=== PATIENT | male | born 1960 | race Caucasian/White ===

== ENCOUNTER 2017-03-26 20:44 | Emergency (ER) | payer BC ==
[2017-03-26 20:50] VITALS: BP 124/83; PULSE 89; TEMP 97.8; BMI 33.4
--- NOTE | 2017-03-26 21:22 | PDOC ---
Rapid Medical Evaluation Chief Complaint: Back Pain Time Seen by Provider: 03/26/17 20:46 Medical Evaluation: Allergies Allergy/AdvReac Type Severity Reaction Status Date / Time No Known Allergies Allergy Verified 11/30/15 21:48 03/26/17 20:46 I have performed a brief in-person evaluation of this patient. The patient presents with a chief complaint of:Lower back pain radiating to b/l LE x 2 days. H/o lower back pain w/ "R side sciatica", HLD, DM Pertinent physical exam findings: Appears minimally uncomfortable but stable w/ unremarkable exam otherwise I have ordered the following:nothing The patient will proceed to the ED for further evaluation. 03/26/17 21:22
[2017-03-26] MEDS ORDERED: KETOROLAC TROMETHAMINE 60 MG/2 ML VIAL IM ONE (21:30)
[2017-03-26] MEDS ORDERED: KETOROLAC TROMETHAMINE 60 MG/2 ML VIAL ONE (21:32)
--- NOTE | 2017-03-26 21:35 | PDOC ---
History of Present Illness - General Chief Complaint: Back Pain Stated Complaint: BACK PAIN Time Seen by Provider: 03/26/17 20:46 History Source: Patient Exam Limitations: No Limitations - History of Present Illness Initial Comments: 03/26/17 21:30 56 yr male with sciatica radiates to right buttock and leg for 3 days started after lifting heavy boxes. pt denies abd pain denies nvd no urinary or bowel dysfunction. Pain Location: reports: none Method of Injury: Yes: other (lifting heavy boxes) Associated Symptoms (Fall): denies symptoms Past History - Past Medical History Allergies/Adverse Reactions: Allergies Allergy/AdvReac Type Severity Reaction Status Date / Time No Known Allergies Allergy Verified 03/26/17 20:49 Home Medications: Ambulatory Orders Cyclobenzaprine HCl [Flexeril] 5 mg PO TID #9 tablet 11/30/15 Ibuprofen [Motrin -] 800 mg PO TID #30 tablet 11/30/15 Metformin HCl 500 mg PO BID 11/30/15 Oxycodone HCl/Acetaminophen [Percocet 5/325 -] 1 tab PO Q4H #15 tablet 11/30/15 Pregabalin [Lyrica] 0 mg PO BID 11/30/15 Simvastatin [Zocor -] 30 mg PO DAILY 11/30/15 Cyclobenzaprine HCl [Flexeril 10 mg] 5 mg PO TID PRN #15 tablet 03/26/17 Naproxen [Naprosyn -] 500 mg PO BID PRN #14 tablet 03/26/17 Anemia: No Asthma: No Cancer: No Cardiac Disorders: No CVA: No COPD: Yes CHF: No Dementia: No Diabetes: Yes GI Disorders: No Disorders: No HTN: No Hypercholesterolemia: Yes Liver Disease: No Suicide Attempt (Hx): No Seizures: No Thyroid Disease: No - Surgical History Abdominal Surgery: Yes Appendectomy: Yes - Immunization History Immunization Up to Date: Yes - Psycho/Social/Smoking Cessation Hx Anxiety: No Suicidal Ideation: No Smoking Status: Yes Smoking History: Current every day smoker Have you smoked in the past 12 months: Yes Number of Cigarettes Smoked Daily: 20 Information on smoking cessation initiated: No Hx Alcohol Use: No Drug/Substance Use Hx: No Substance Use Type: None Hx Substance Use Treatment: No Trauma Specific PMHX - Complaint Specific PMHX Arthritis: No Back Injury: Yes (years ago ) Neck Injury: No Hx Sacro Iliac Joint Dysfunction: No Review of Systems - Review of Systems Able to Perform ROS?: Yes Is the patient limited Syriac proficient: No Constitutional: No: Symptoms Reported HEENTM: No: Symptoms Reported Respiratory: No: Symptoms reported Cardiac (ROS): No: Symptoms Reported ABD/GI: No: Symptoms Reported : No: Symptoms Reported Musculoskeletal: Yes: See HPI, Back Pain *Physical Exam - Vital Signs Last Vital Signs Temp Pulse Resp BP Pulse Ox 97.8 F 89 18 124/83 99 03/26/17 20:46 03/26/17 20:46 03/26/17 20:46 03/26/17 20:46 03/26/17 20:46 - Physical Exam General Appearance: Yes: Nourished, Appropriately Dressed HEENT: positive: EOMI, MG Neck: negative: Tender Respiratory/Chest: positive: Lungs Clear, Normal Breath Sounds. negative: Chest Tender Cardiovascular: positive: Regular Rhythm, Regular Rate Gastrointestinal/Abdominal: positive: Normal Bowel Sounds, Soft. negative: Tender Musculoskeletal: positive: Normal Inspection, Other (ttp soft tissue para spinal lumbar to buttock point tenderness to buttock). negative: CVA Tenderness , CVA Tenderness (R), CVA Tenderness (L), Decreased Range of Motion, Muscle Spasm, Vertebral Tenderness Extremity: positive: Normal Capillary Refill, Normal Inspection, Normal Range of Motion, Other (positive slr right leg at 50 degrees). negative: Tender Integumentary: positive: Normal Color, Dry, Warm Neurologic: positive: Fully Oriented, Alert, Normal Mood/Affect, Normal Response , Motor Strength 5/5 Medical Decision Making - Medical Decision Making 03/26/17 21:34 sciatica right side buttock to lateral thigh no numbness or tingling neg saddle anesthesia neg urine or bowel dysfunction will give toradol and dc home with flexeril follow up with PMD and orthopedist pt agrees with plan of care all questions asked and answered *DC/Admit/Observation/Transfer Diagnosis at time of Disposition: Back pain Qualifiers: Back pain location: low back pain Chronicity: acute Back pain laterality: right Sciatica presence: with sciatica Sciatica laterality: sciatica of right side Qualified Code(s): M54.41 - Lumbago with sciatica, right side - Discharge Dispostion Disposition: HOME Condition at time of disposition: Good - Prescriptions Prescriptions: Cyclobenzaprine HCl [Flexeril 10 mg] 5 mg PO TID PRN #15 tablet PRN Reason: Muscle Spasms Naproxen [Naprosyn -] 500 mg PO BID PRN #14 tablet PRN Reason: Back Pain - Referrals Referrals: Trent Garcia MD [Primary Care Provider] - Alec Albright MD [Staff Physician] - - Patient Instructions Additional Instructions: WARM COMPRESSES TO LOWER BACK EVERY 3-4HRS FOR 20 MINUTES TAKE FLEXERIL FOR MUSCLE SPASM TAKE NAPROSYN FOR PAIN FOLLOW WITH YOUR DOCTOR FOR FOLLOW UP OR WITH THE ORTHOPEDIST RETURN TO ER FOR ANY WORSENING SYMPTOMS
== END 2017-03-26 21:46 | disposition home or self-care (01) ==
LOC: JERFT 20:44
PROC: 3E0233Z Introduction of Anti-inflammatory into Muscle, Percutaneous Approach (ICD-10-PCS; principal; 2017-03-26)
DX: M54.41 Lumbago with sciatica, right side (principal); F17.210 Nicotine dependence, cigarettes, uncomplicated; J44.9 Chronic obstructive pulmonary disease, unspecified; E11.9 Type 2 diabetes mellitus without complications; E78.00 Pure hypercholesterolemia, unspecified
CPT/HCPCS: 99281-25

== ENCOUNTER 2021-03-01 11:58 | Inpatient (IN) | payer OTHER ==
[2021-03-01] MEDS ORDERED: BISMUTH SUBSALICYLATE 262 MG/15 ML BTL PO PRN (12:56)
[2021-03-01] MEDS ORDERED: ONDANSETRON *ODT* 4 MG TABLET SL PRN (12:56)
[2021-03-01] MEDS ORDERED: NICOTINE POLACRILEX 2 MG GUM BUC PRN (12:56)
[2021-03-01] MEDS ORDERED: MENTHOL/PHENOL 1 EACH UD MM PRN (12:56)
[2021-03-01] MEDS ORDERED: MAGNESIUM CITRATE 300 ML BOTTLE PO PRN (12:56)
[2021-03-01] MEDS ORDERED: MAG HYDROX/AL HYDROX/SIMETH 30 ML UNIT-DOSE CUP PO PRN (12:56)
[2021-03-01] MEDS ORDERED: METHADONE HCL 10 MG TABLET (FOR DETOX USE ONLY) PO ONE (12:56)
[2021-03-01] MEDS ORDERED: IBUPROFEN 400 MG TABLET (FP) PO PRN (12:56)
[2021-03-01] MEDS ORDERED: ACETAMINOPHEN 325 MG TABLET (FP) PO PRN (12:56)
[2021-03-01] MEDS ORDERED: MAGNESIUM HYDROX 2400MG/30ML ORAL SUSPENSION 30 ML CUP PO PRN (12:56)
[2021-03-01] MEDS ORDERED: cloNIDine HCL 0.1 MG TABLET PO PRN (12:56)
[2021-03-01 12:57] VITALS: BMI 26.7
[2021-03-01] MEDS: PRENATAL VITAMINS W/ FOLIC ACID TABLET (FP) PO SCH (16:21)
[2021-03-01] MEDS: NICOTINE 21 MG/24 HOURS TOPICAL PATCH TD SCH (16:21)
[2021-03-01] MEDS: hydrOXYzine PAMOATE 25 MG CAPSULE (FP) PO SCH ×3 (16:26→22:08)
[2021-03-01 16:58] LABS: HEMOGLOBIN 12.4 GM/dL (11.7-16.9); MCH 30.2 pg (25.7-33.7); MCHC 33.4 g/dl (32.0-35.9); MEAN CELL VOLUME 90.4 fl (80-96); MEAN PLT VOLUME 7.8 fl (7.5-11.1); PLATELET COUNT 287 K/MM3 (134-434); WHITE BLOOD COUNT 9.3 K/mm3 (4.0-10.0)
[2021-03-01 17:04] LABS: ALBUMIN 3.8 g/dl (3.4-5.0); CALCIUM 8.8 mg/dL (8.5-10.1)
[2021-03-01 17:05] LABS: BLOOD UREA NITROGEN 8.8 mg/dL (7-18)
[2021-03-01 17:07] LABS: CREATININE 0.7 mg/dL (0.55-1.3)
[2021-03-01 17:09] LABS: BILIRUBIN,TOTAL 0.5 mg/dL (0.2-1); TOT PROT 7.2 g/dl (6.4-8.2)
[2021-03-01 17:55] LABS: HIV INTERPRETATION NEGATIVE (NEGATIVE)
[2021-03-01] MEDS: metFORMIN HCL 500 MG TABLET (FP) PO SCH (18:08)
[2021-03-01 19:07] LABS: SYPHILIS W/ RPR CONF REACTIVE (NONREACTIVE)
[2021-03-01] MEDS: THIAMINE HCL 100 MG TABLET (FP) PO SCH (22:08)
[2021-03-01] MEDS: MELATONIN 5 MG TABLETS PO SCH (22:08)
[2021-03-01] MEDS: ACETAMINOPHEN 325 MG TABLET (FP) PO PRN (22:09)
[2021-03-02] MEDS: hydrOXYzine PAMOATE 25 MG CAPSULE (FP) PO SCH ×5 (05:29→21:22)
[2021-03-02] MEDS: metFORMIN HCL 500 MG TABLET (FP) PO SCH ×2 (06:30→17:34)
[2021-03-02] MEDS: GEMFIBROZIL 600 MG TABLET (FP) PO SCH (06:30)
[2021-03-02] MEDS ORDERED: METHADONE HCL 10 MG TABLET (FOR DETOX USE ONLY) ONE (09:54)
[2021-03-02] MEDS ORDERED: METHADONE HCL 5 MG TABLET (FOR DETOX USE ONLY) ONE (09:54)
[2021-03-02] MEDS ORDERED: METHADONE (DETOX) 20 MG, METHADONE (DETOX) 5 MG PO ONE (10:00)
[2021-03-02] MEDS ORDERED: GEMFIBROZIL PO SCH (10:00)
[2021-03-02] MEDS: NICOTINE 21 MG/24 HOURS TOPICAL PATCH TD SCH (10:08)
[2021-03-02] MEDS: PRENATAL VITAMINS W/ FOLIC ACID TABLET (FP) PO SCH (10:09)
[2021-03-02] MEDS: METHOCARBAMOL 500 MG TABLET PO PRN ×2 (10:10→21:22)
[2021-03-02] MEDS: MELATONIN 5 MG TABLETS PO SCH (21:22)
[2021-03-02] MEDS: THIAMINE HCL 100 MG TABLET (FP) PO SCH (21:22)
[2021-03-03] MEDS: hydrOXYzine PAMOATE 25 MG CAPSULE (FP) PO SCH ×2 (05:38→11:42)
[2021-03-03] MEDS: metFORMIN HCL 500 MG TABLET (FP) PO SCH ×2 (06:19→16:39)
[2021-03-03] MEDS: GEMFIBROZIL 600 MG TABLET (FP) PO SCH (06:47)
[2021-03-03] MEDS ORDERED: METHADONE HCL 10 MG TABLET (FOR DETOX USE ONLY) PO ONE (10:00)
[2021-03-03] MEDS ORDERED: hydrOXYzine PAMOATE 25 MG CAPSULE (FP) PO PRN (10:26)
[2021-03-03] MEDS: PRENATAL VITAMINS W/ FOLIC ACID TABLET (FP) PO SCH (10:39)
[2021-03-03] MEDS: NICOTINE 21 MG/24 HOURS TOPICAL PATCH TD SCH (10:39)
[2021-03-03] MEDS: METHOCARBAMOL 500 MG TABLET PO PRN (10:41)
[2021-03-03] MEDS: diazePAM 5 MG TABLET PO PRN ×2 (10:44→22:00)
[2021-03-03] MEDS: TRIMETHOBENZAMIDE HCL 300 MG CAPSULE PO PRN (16:39)
[2021-03-03] MEDS ORDERED: TRIMETHOBENZAMIDE HCL 200MG/2ML INJ IM ONE (18:47)
[2021-03-03] MEDS: MELATONIN 5 MG TABLETS PO SCH (22:01)
[2021-03-03] MEDS: THIAMINE HCL 100 MG TABLET (FP) PO SCH (22:01)
[2021-03-04] MEDS: metFORMIN HCL 500 MG TABLET (FP) PO SCH ×2 (06:13→18:04)
[2021-03-04] MEDS: GEMFIBROZIL 600 MG TABLET (FP) PO SCH (07:06)
[2021-03-04] MEDS ORDERED: TRIMETHOBENZAMIDE HCL 200MG/2ML INJ IM PRN (09:02)
[2021-03-04] MEDS ORDERED: METHADONE HCL 5 MG TABLET (FOR DETOX USE ONLY) ONE (09:48)
[2021-03-04] MEDS ORDERED: METHADONE HCL 10 MG TABLET (FOR DETOX USE ONLY) ONE (09:48)
[2021-03-04] MEDS ORDERED: METHADONE (DETOX) 10 MG, METHADONE (DETOX) 5 MG PO ONE (10:00)
[2021-03-04] MEDS: NICOTINE 21 MG/24 HOURS TOPICAL PATCH TD SCH (10:05)
[2021-03-04] MEDS: diazePAM 5 MG TABLET PO PRN ×3 (10:05→22:06)
[2021-03-04] MEDS: PRENATAL VITAMINS W/ FOLIC ACID TABLET (FP) PO SCH (10:05)
[2021-03-04] MEDS: METHOCARBAMOL 500 MG TABLET PO PRN (10:06)
[2021-03-04] MEDS: SODIUM CHLORIDE NASAL SPRAY 44 ML BOTTLE NS PRN ×2 (10:06→22:06)
[2021-03-04] MEDS: THIAMINE HCL 100 MG TABLET (FP) PO SCH (22:05)
[2021-03-04] MEDS: MELATONIN 5 MG TABLETS PO SCH (22:05)
[2021-03-05] MEDS: diazePAM 5 MG TABLET PO PRN ×4 (05:51→22:10)
[2021-03-05] MEDS: metFORMIN HCL 500 MG TABLET (FP) PO SCH ×2 (06:28→17:29)
[2021-03-05] MEDS: GEMFIBROZIL 600 MG TABLET (FP) PO SCH (06:29)
[2021-03-05] MEDS ORDERED: METHADONE HCL 10 MG TABLET (FOR DETOX USE ONLY) PO ONE (10:00)
[2021-03-05] MEDS: NICOTINE 21 MG/24 HOURS TOPICAL PATCH TD SCH (10:20)
[2021-03-05] MEDS: PRENATAL VITAMINS W/ FOLIC ACID TABLET (FP) PO SCH (10:20)
[2021-03-05] MEDS: TRIMETHOBENZAMIDE HCL 300 MG CAPSULE PO PRN (17:31)
[2021-03-05] MEDS: ACETAMINOPHEN 325 MG TABLET (FP) PO PRN (22:11)
[2021-03-05] MEDS: THIAMINE HCL 100 MG TABLET (FP) PO SCH (22:11)
[2021-03-05] MEDS: MELATONIN 5 MG TABLETS PO SCH (22:11)
[2021-03-05] MEDS: SODIUM CHLORIDE NASAL SPRAY 44 ML BOTTLE NS PRN (22:12)
[2021-03-06] MEDS ORDERED: METHADONE HCL 5 MG TABLET (FOR DETOX USE ONLY) PO ONE (06:00)
[2021-03-06 06:08] VITALS: BP 104/65; PULSE 78; TEMP 96.4
[2021-03-06] MEDS: GEMFIBROZIL 600 MG TABLET (FP) PO SCH (06:42)
[2021-03-06] MEDS: metFORMIN HCL 500 MG TABLET (FP) PO SCH (06:42)
[2021-03-06] MEDS ORDERED: INSULIN SLIDING SCALE (NOVOLOG) 1 VIAL SQ ONE (06:43)
[2021-03-06] MEDS: PRENATAL VITAMINS W/ FOLIC ACID TABLET (FP) PO SCH (09:56)
[2021-03-06] MEDS: NICOTINE 21 MG/24 HOURS TOPICAL PATCH TD SCH (09:56)
== END 2021-03-06 10:03 | disposition home or self-care (01) | DRG 773 ==
LOC: YASAS 11:58 → Y3N 13:49
PROVIDERS: ADMIT Allergy & Immunology; ATTEND Allergy & Immunology
PROC: HZ2ZZZZ Detoxification Services for Substance Abuse Treatment (ICD-10-PCS; principal; 2021-03-01)
DX: F11.23 Opioid dependence with withdrawal (principal); F10.10 Alcohol abuse, uncomplicated; F14.10 Cocaine abuse, uncomplicated; F17.210 Nicotine dependence, cigarettes, uncomplicated; E78.5 Hyperlipidemia, unspecified; E11.9 Type 2 diabetes mellitus without complications; Z79.84 Long term (current) use of oral hypoglycemic drugs; J44.9 Chronic obstructive pulmonary disease, unspecified; R11.0 Nausea; A53.0 Latent syphilis, unspecified as early or late; Z86.79 Personal history of other diseases of the circulatory system
CPT/HCPCS: 36415; 80053; 82962; 85027; 86593; 86780; 86803; 87389; C9803; J0735; Q0162; U0003; U0005